=== PATIENT | female | born 1990 | race Caucasian/White ===

== ENCOUNTER 2016-11-22 21:32 | Inpatient (IN) | payer OTHER ==
[2016-11-22] MEDS ORDERED: AMPICILLIN SODIUM 2 GM in NS 100 ML IV ONE (22:06)
[2016-11-22] MEDS ORDERED: LR 1,000 ML IV PRN (22:06)
[2016-11-22] MEDS ORDERED: EPSOM SALT 454 GM TP PRN (22:06)
[2016-11-22] MEDS ORDERED: OXYTOCIN/RINGERS LACTATE 1,000 ML IV PRN (22:06)
[2016-11-22] MEDS ORDERED: LIDOCAINE 1% 30 ML SDV SC PRN (22:06)
[2016-11-22] MEDS ORDERED: OLIVE OIL 118 ML BTL MISC PRN (22:06)
[2016-11-22] MEDS ORDERED: TERBUTALINE SULFATE 1 MG/ML VIAL IV PRN (22:06)
[2016-11-22] MEDS ORDERED: OXYTOCIN/RINGERS LACTATE 500 ML IV SCH (22:30)
[2016-11-22 22:59] LABS: % IMMATURE GRANULYOCYTES 0.6 % (0.0-1.1); ABSOLUTE IMMATURE GRANULOCYTES 0.07 10^3/uL (0.00-0.10); ADD DIFF? NO; ADD MORPH? NO; ADD SCAN? NO; ATYPICAL LYMPHOCYTE FLAG 0 (0-99); FRAGMENT RBC FLAG 0 (0-99); HEMATOCRIT 36.7 % (38.0-47.0); HEMOGLOBIN 12.8 g/dL (12.6-16.3); LEFT SHIFT FLG 0 (0-99); LIPEMIA HEMOLYSIS FLAG 90 (0-99); MEAN CELL HEMOGLOBIN 31.4 pg (27.9-34.1); MEAN CELL HEMOGLOBIN CONCENTR. 34.9 g/dL (32.4-36.7); MEAN CELL VOLUME 90.2 fL (81.5-99.8); MEAN PLATELET VOLUME 9.5 fL (8.7-11.7); PLATELET CLUMPS FLAG 0 (0-99); PLATELET COUNT 223 10^3/uL (150-400); RED BLOOD CELL COUNT 4.07 10^6/uL (4.18-5.33); RED CELL DISTRIBUTION WIDTH 12.5 % (11.5-15.2)
[2016-11-22] MEDS ORDERED: OXYTOCIN 10 UNIT/ML VIAL ONE (23:02)
[2016-11-22] MEDS ORDERED: LIDOCAINE 1% 30 ML SDV ONE (23:02)
[2016-11-22] MEDS ORDERED: AMMONIA AROMATIC 1 EACH AMP IH ONE (23:02)
[2016-11-22] MEDS ORDERED: OLIVE OIL 118 ML BTL ONE (23:02)
[2016-11-22] MEDS ORDERED: TERBUTALINE SULFATE 1 MG/ML VIAL ONE (23:02)
--- NOTE | 2016-11-22 23:02 | GHP ---
[f rep st] PREOP HISTORY AND PHYSICAL DATE OF ADMISSION: 11/22/2016 ADMITTING DIAGNOSIS: 25-year-old, 2, para 1-0-0-1 at 39-3/7-weeks who presents complaining of contractions, in early labor. HISTORY OF PRESENT COMPLAINT: Patient complaining of contractions every 5-8 minutes since around 7:30 p.m. this evening and getting stronger. Denies leaking of fluid or vaginal bleeding. Positive movement. Estimated due date 11/26/2016, confirmed with 8wk U/S. The patient has received care with [facility] since 1st trimester. No complications with this . GBS positive. MEDICAL HISTORY: Asthma with infrequent albuterol use; Scoliosis; Anemia; and Depression/Anxiety - uses marijuana, used SSRIs in the past, currently no medications. SURGICAL HISTORY: Eyelid surgery. MEDICATIONS: vitamin, PRN Albuterol. ALLERGIES: Denies. 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 Needs Pap/colpo repeat . History of ovarian cysts. Denies history of STDs. FAMILY HISTORY: Noncontributory. SOCIAL HISTORY: Single. Father of baby involved. Marijuana use for anxiety and nausea during . Denies alcohol or tobacco use. OB HISTORY: 07/2011: , 6 pounds 4 ounce female, full-term, complicated by "problem with epidural wearing off" and depression x1 month. LABS: A-positive, antibody negative, GBS positive, HIV negative, hepatitis B negative, syphilis negative, rubella immune, GC/CT negative, one- hour GTT 93, Quad screen negative. PHYSICAL EXAMINATION: VITAL SIGNS: Stable. GENERAL APPEARANCE: Alert and oriented x3. CARDIOVASCULAR: Heart rate regular. LUNGS: Clear to auscultation bilaterally. ABDOMEN: Gravid, nontender. SVE: 4-5/70/-2, intact , bulging bag of water. position: Cephalic. heart tracing category II, heart tones 130 with moderate variability, positive accelerations, occasional variable decelerations to 90 bpm with spontaneous return to baseline. ASSESSMENT: A 25-year-old, 2, para 1-0-0-1 at 39-3/7-weeks who presents in early labor. PLAN: 1. Routine admit orders. 2. GBS prophylaxis per protocol. 3. Continuous Maternal- monitoring. 4. Pain management per patient request. 5. Discussed Pitocin augmentation if contractions not regular, patient agreeable. 6. Reviewed Pitocin risks. Patient verbalizes understanding. 7. Discussed plan of care with Dr. Vee, attending. /[id number]/MODL MTDEm
[2016-11-22] MEDS ORDERED: MISOPROSTOL 200 MCG TAB ONE (23:03)
--- NOTE | 2016-11-23 01:50 | OBPROG ---
OBG Progress Note Assessment/Plan: Assessment: 25y/o IUP @39w4d per L=8, active labor heart tracing Cat 2 Plan: Con't maternal/ monitoring Con't GBS prophylaxis per protocol Epidural for pain mgmt per pt req Disc POC with Dr. Vee, attending - amniotomy vs. pitocin augmentation s/p epidural placement if pt agreeable Anticipate 11/23/16 01:46 Subjective: Pt resting in bed, FOB at bedside. Pt c/o increased pain with CTXs, requests epidural at this time. Increased nausea with one episode vomiting. Objective: 11/22/16 22:40 Patient ABO/Rh A POSITIVE 11/22/16 22:40 - SVE Dilation (cm): 6 Effacement (%): 90 Station: -2 Current Contraction Pattern: Irregular (q 3 - 10 min) FHR (bpm): 120 (+accels, +occas variable decels with CTX to 90bpm with spont return to baseline) FHR Pattern Variability: Moderate FHR Category: 2 Membranes: Intact - Physical Exam General Appearance: alert, mild distress Abdomen: non-tender, soft Extremities: normal range of motion Skin: warm/dry Neuro/Psych: alert, normal mood/affect, oriented x 3 ICD10 Worksheet Patient Problems: Problems Problem Status Onset Active labor at term Acute - ICD10 Problem Qualifiers (1) Active labor at term
[2016-11-23] MEDS ORDERED: fentaNYL 100 MCG/2 ML INJ ONE (02:11)
[2016-11-23] MEDS ORDERED: BUPIVACAINE 0.25% 30 ML SDV ONE (02:12)
[2016-11-23] MEDS ORDERED: fentaNYL 2MCG/ML/BUP 0.1% RTU 100 ML BAG EP ONE (02:13)
[2016-11-23] MEDS: AMPICILLIN SODIUM 1 GM in NS 100 ML IV SCH ×5 (03:05→17:51)
[2016-11-23] MEDS: LR 500 ML IV SCH ×2 (04:34→06:44)
--- NOTE | 2016-11-23 04:34 | OBPROG ---
OBG Progress Note Assessment/Plan: Assessment: 25y/o IUP @39w4d per L=8, active labor heart tracing Cat 2 GBS+, rec'd 2 doses ABX prophylaxis Plan: Con't maternal/ monitoring Con't GBS prophylaxis per protocol Epidural in place Expectant mgmt s/p AROM Anticipate 11/23/16 01:46 11/23/16 04:31 11/23/16 04:32 Subjective: Pt napping, FOB at bedside. Pain well-controlled s/p epidural. Agreeable to trying AROM prior to pitocin to augment labor. Objective: 11/22/16 22:40 Patient ABO/Rh A POSITIVE 11/22/16 22:40 - SVE Dilation (cm): 6 Effacement (%): 100 Station: -2 Current Contraction Pattern: Irregular ( 4 - 10 min) FHR (bpm): 120 (+accels, +occas variable decels with spont return to baseline) FHR Pattern Variability: Moderate FHR Category: 2 Membranes: AROM (@0430) Amniotic Fluid Color: Clear - Physical Exam General Appearance: alert, no apparent distress Abdomen: non-tender, soft Skin: warm/dry Neuro/Psych: alert, normal mood/affect, oriented x 3 ICD10 Worksheet Patient Problems: Problems Problem Status Onset Active labor at term Acute - ICD10 Problem Qualifiers (1) Active labor at term
--- NOTE | 2016-11-23 06:41 | OBPROG ---
OBG Progress Note Assessment/Plan: Assessment: 25y/o IUP @39w4d per L=8, active labor heart tracing Cat 2 GBS+, rec'd 2 doses ABX prophylaxis Plan: Con't maternal/ monitoring Con't GBS prophylaxis per protocol Epidural in place Pitocin augmentation per protocol Rev risks of pitocin, pt verbalized understanding Disc POC with Dr. Vee, attending 11/23/16 06:39 Subjective: Pt resting comfortably in bed, family at bedside. Denies increase in pain/ pressure. Objective: 11/22/16 22:40 Patient ABO/Rh A POSITIVE 11/22/16 22:40 - SVE Dilation (cm): 6 Effacement (%): 100 Station: -2 Current Contraction Pattern: Irregular (q 4-7 min) FHR (bpm): 115 (+accels, occas variable decels with spont return to baseline) FHR Pattern Variability: Moderate FHR Category: 2 Membranes: SROM Amniotic Fluid Color: Clear - Physical Exam General Appearance: alert, no apparent distress Membranes: AROM Amniotic Fluid Color: clear Neuro/Psych: alert, normal mood/affect, oriented x 3 ICD10 Worksheet Patient Problems: Problems Problem Status Onset Active labor at term Acute - ICD10 Problem Qualifiers (1) Active labor at term
[2016-11-23] MEDS ORDERED: PHENYLEPHRINE HCL 100 MCG/ML SYR ONE (07:30)
[2016-11-23] MEDS ORDERED: HYDROCORTISONE 0.5% CREAM TP PRN (09:30)
[2016-11-23] MEDS ORDERED: HYDROCODONE/APAP 5/325 TAB PO PRN (09:30)
[2016-11-23] MEDS ORDERED: SIMETHICONE 80 MG TAB CHEW PO PRN (09:30)
--- NOTE | 2016-11-23 09:35 | OBPROC ---
- Labor and Delivery Onset of Contractions Date: 11/22/16 Onset of Contractions Time: 21:00 Onset of Contractions Type: Augmented Rupture of Membranes Date: 11/23/16 Rupture of Membranes Time: 04:30 Rupture of Membranes Type: Artificial Amniotic Fluid Color: Clear Dilation Complete Time: 07:00 Delivery Type: Spontaneous Placenta Delivery Date: 11/23/16 Placenta Delivery Time: 09:20 Episiotomy/Laceration: Periurethral (Right-hemostatic), Other (Specify) ( Perineum intact) Repair: Other (Specify) (none) EBL: 300 Complications: Nuchal Cord (x1; slipped over shoulder; cord around limb x 1) - Medications Labor Augmentation/Induction Meds Used: Pitocin Labor Augmentation/Induction Indication: Other (Specify) (No cervical change) Anesthesia: Epidural - Info Infant A Delivery Date: 11/23/16 Delivery Time: 09:15 Sex of : Female (Iris) Score (1 Min): 8 Score (5 Min): 9
[2016-11-23] MEDS: IBUPROFEN 600 MG TAB PO PRN ×3 (10:23→23:29)
[2016-11-23 20:11] VITALS: O2SAT 95
[2016-11-24] MEDS: IBUPROFEN 600 MG TAB PO PRN ×3 (05:05→17:50)
[2016-11-24] MEDS: DOCUSATE SODIUM 100 MG CAP PO PRN ×2 (07:52→21:54)
--- NOTE | 2016-11-24 10:15 | SOAPPROG ---
SOAP Progress Note Assessment/Plan: Assessment: well pain well managed vs wnl afebrile ff@u scant rubra lochia perineum well approximated voiding without difficulty Plan:pp day1 11/24/16 10:14 Subjective: Doing well denies difficulty. well. Voiding well. Objective: Vital Signs Temp Pulse Resp BP Pulse Ox 37.1 C 140 H 16 112/72 95 11/24/16 08:02 11/24/16 08:02 11/24/16 08:02 11/23/16 20:11 11/23/16 20:11 Laboratory Results 11/22/16 22:40 11/23/16 11/24/16 11/25/16 05:59 05:59 05:59 Output Total 250 Balance -250 - Time Spent With Patient Time Spent With Patient: 15 minutes - Pending Discharge Pending Discharge Within 24 Hours: Yes Pending Discharge Date: 11/25/16 Pending Discharge Time: 11:00 Physical Exam - Physical Exam General Appearance: WD/WN, alert, no apparent distress Abdomen: other (FF@u) Pelvic Exam: vaginal bleeding (Scant rubra lochia) Skin: normal color, warm/dry Extremities: normal range of motion, Macario's sign (negative bilaterally), other (dtrs wnl bilaterally 1+ no clonus) Neuro/Psych: no motor/sensory deficits, alert, normal mood/affect, oriented x 3 ICD10 Worksheet Patient Problems: Problems Problem Status Onset Active labor at term Acute (spontaneous vaginal delivery) Acute
[2016-11-25] MEDS: IBUPROFEN 600 MG TAB PO PRN ×2 (01:21→08:42)
[2016-11-25] MEDS: DOCUSATE SODIUM 100 MG CAP PO PRN (08:42)
--- NOTE | 2016-11-25 10:28 | SOAPPROG ---
SOAP Progress Note Assessment/Plan: Assessment: ppd# 2 s/p breast feeding hx anxiety and depression - mood stable Plan: routine post care and discharge instructions mood precautions 11/25/16 10:26 Objective: Vital Signs Temp Pulse Resp BP Pulse Ox 36.8 C 72 16 114/69 95 11/24/16 20:00 11/24/16 20:00 11/24/16 20:00 11/24/16 20:00 11/24/16 20:00 Laboratory Results 11/22/16 22:40 11/24/16 11/25/16 11/26/16 05:59 05:59 05:59 Output Total 250 Balance -250 Physical Exam - Physical Exam General Appearance: WD/WN, alert, no apparent distress Respiratory: chest non-tender, lungs clear, normal breath sounds Cardiac/Chest: normal peripheral pulses, regular rate, rhythm Abdomen: normal bowel sounds, non-tender, soft, other (fundus firm and non tender) Skin: normal color, warm/dry Extremities: normal range of motion, non-tender, normal inspection, normal capillary refill Neuro/Psych: no motor/sensory deficits, alert, normal mood/affect, oriented x 3 ICD10 Worksheet Patient Problems: Problems Problem Status Onset Active labor at term Acute (spontaneous vaginal delivery) Acute
[2016-11-25 12:24] VITALS: BP 107/72; PULSE 77; RESP 40; TEMP 98.1
== END 2016-11-25 12:00 | disposition home or self-care (01) | DRG 775 ==
LOC: OBSVTOIN 21:32 → FLD 21:32 → FOB 11-23 12:42
PROVIDERS: ADMIT Advanced Practice Midwife; ATTEND Advanced Practice Midwife
PROC: 10E0XZZ Delivery of Products of Conception, External Approach (ICD-10-PCS; principal; 2016-11-23)
DX: O69.82X0 Labor and delivery complicated by other cord entanglement, without compression, not applicable or unspecified (principal); O99.824 Streptococcus B carrier state complicating childbirth; Z3A.39 39 weeks gestation of pregnancy; Z37.0 Single live birth
CPT/HCPCS: J0290; J2370; J2590; J3010; J3105

== ENCOUNTER 2018-06-21 08:14 | Emergency (ER) | payer MEDICAID ==
[2018-06-21] MEDS ORDERED: predniSONE 20 MG TAB PO ONE (08:40)
[2018-06-21] MEDS ORDERED: FAMOTIDINE 40 MG in NS 100 ML IV ONE (08:41)
[2018-06-21] MEDS ORDERED: ACETAMINOPHEN 500 MG TAB PO ONE (08:41)
--- NOTE | 2018-06-21 08:46 | EDPHY ---
H & P Time Seen by Provider: 06/21/18 08:24 HPI/ROS: This patient presents with urticaria and severe itching. She attributes this to the minocycline antibiotic that she started a week ago for acne. She stops taking it yesterday due to the onset of the urticaria and reports that initially the hives were limited to her trunk but over the past 24 hr of spread to her face and legs in addition. The intense itching prevents sleep last night. She has taken Benadryl with minimal improvement-last dose 25 mg at 3:00 a.m.. She notes no other exacerbating factors. She reports an associated frontal headache similar to prior headaches achy in nature 7/10 intensity. She denies any other associated symptoms. She is accompanied by her fiancee who drove her here by private vehicle. ROS: Constitutional: No fevers or other complaints HEENT: No URI symptoms. She reports slight facial swelling around her eyes but no mouth swelling, difficulty swallowing or other complaints Pulmonary: No significant dyspnea or wheezing. Cardiovascular: No significant lightheadedness GI: Slight nausea this morning has since resolved. She tolerated breakfast without difficulty-discussing gravy 7 point review of symptoms is performed and otherwise negative with exception of pertinent positives and negatives listed in HPI and ROS Past Medical/Surgical History: Acne Intermittent headaches similar to today's that usually respond [id number] analgesics Smoking Status: Never smoked Physical Exam: General Appearance: Alert, no distress. Eyes: Pupils equal and round no pallor or injection. Optic fundi are normal bilaterally ENT, Mouth: Mucous membranes moist. No cranial tenderness. Respiratory: There are no retractions, lungs are clear to auscultation. Cardiovascular: Regular rate and rhythm. Gastrointestinal: Abdomen is soft and nontender, no masses, bowel sounds normal. Neurological: GCS 15. Cranial nerves 2-12 grossly intact no focal sensory motor deficits Skin: Diffuse urticaria covering trunk phase extremities-erythematous papules that idania easily with pressure. No petechia or purpura. No mucosal lesions on lips or intraoral lesions. Musculoskeletal: Neck is supple nontender. Extremities are symmetrical, full range of motion. Psychiatric: Mood and affect are normal DIFFERENTIAL DIAGNOSIS: After history and physical exam differential diagnosis was considered for drug allergy with urticaria. No clinical evidence of anaphylaxis. Tension headache, migraine headache, sinusitis Constitutional: Initial Vital Signs Temperature (C) 37.1 C 06/21/18 08:24 Heart Rate 105 H 06/21/18 08:24 Respiratory Rate 18 06/21/18 08:24 Blood Pressure 113/78 06/21/18 08:24 O2 Sat (%) 100 06/21/18 08:24 O2 Delivery Mode Room Air Allergies/Adverse Reactions: minocycline Allergy (Verified 06/21/18 08:22) Home Medications: Medication Instructions Recorded Bcp 06/21/18 Minocycline HCl 06/21/18 hydrOXYzine HCL [Hydroxyzine HCl] 50 - 100 mg PO QID PRN #80 tablet 06/21/18 predniSONE 60 mg PO DAILY #25 tablet 06/21/18 MDM/Departure - MDM ED Course/Re-evaluation: Tylenol p. O., prednisone and Pepcid p.o. In addition I counseled patient regarding drug allergy, urticaria tension headache. Discussion: Patient presents with significant urticaria attributable to minocycline drug allergy without evidence of anaphylaxis. Her headache is consistent with prior headaches and clinically consistent with a tension headache. No findings that would suggest intracranial bleed, RUBBER PROCESS HAND infection or other red flag findings. However the patient understands need to return emergency department should she develop worsening allergic symptoms, worsening headache, confusion or any other concerns. Plan to treat her with prednisone, hydroxyzine and Pepcid. - Depart Disposition: Home, Routine, Self-Care Clinical Impression: Allergic urticaria, Drug allergy Condition: Good Instructions: Urticaria (ED), Tension Headache (ED), Antibiotic Medication Allergy (ED) Additional Instructions: Diagnosis: Drug allergy with urticaria 2. Tension headache Plan: Drink plenty fluids Tylenol for headache as needed Prednisone anti-inflammatory as prescribed Hydroxyzine antihistamine for itching Pepcid 40 mg a day until urticaria resolves Return for any significant worsening despite the treatment plan List tetracyclines medications as an allergy in the future and avoid this class of medications. Prescriptions: hydrOXYzine HCL [Hydroxyzine HCl] 50 - 100 mg PO QID PRN #80 tablet PRN Reason: Itching predniSONE 60 mg PO DAILY #25 tablet Referrals: Christopher Page DO [Doctor of Osteopathy] - As per Instructions
[2018-06-21] MEDS ORDERED: FAMOTIDINE 20 MG TAB PO ONE (08:49)
[2018-06-21 09:06] VITALS: BP 107/71
== END 2018-06-21 09:05 | disposition home or self-care (01) ==
LOC: CED 08:14
DX: L50.0 Allergic urticaria (principal); L70.9 Acne, unspecified; Z79.2 Long term (current) use of antibiotics
CPT/HCPCS: J7512

== ENCOUNTER 2018-08-30 02:28 | Emergency (ER) | payer MEDICAID ==
[2018-08-30] MEDS ORDERED: ONDANSETRON 4 MG/2 ML VIAL ONE (02:43)
--- NOTE | 2018-08-30 02:44 | EDPHY ---
H & P Stated Complaint: c/o N/V RT flank pain since 1700 Time Seen by Provider: 08/30/18 02:32 HPI/ROS: 27 yo F presents c/o nausea ,vomiting and diarrhea, with abdominal pain that began about 6 hours ago. No prior abdominal surgery. She also complains of lower back pain that she describes as achy. Review of systems As per HPI General no fever no chills no weakness HEENT no eye pain no eye discharge. No eye redness, no sore throat Respiratory no cough, no shortness of breath Cardiac no chest pain, no peripheral edema GI positive abdominal pain positive nausea positive vomiting positive diarrhea no flank pain, no hematuria, no dysuria Musculoskeletal no myalgias, no joint pain Heme no easy bruising, no easy bleeding Endo no polyuria, no polydipsia Skin no rashes, no pruritus Neuro no syncope, no dizziness, no headaches Psych is no suicidal ideation, no homicidal ideation Source: Patient, Family Exam Limitations: No limitations - Personal History LMP (Females 10-55): Now Current Tetanus Diphtheria and Acellular Pertussis (TDAP): Yes - Medical/Surgical History Hx Asthma: Yes Hx Chronic Respiratory Disease: No Hx Diabetes: No Hx Cardiac Disease: No Hx Renal Disease: No Hx Cirrhosis: No Hx Alcoholism: No Hx HIV/AIDS: No Hx Splenectomy or Spleen Trauma: No Other PMH: Bilateral eyelid surgery- 16yo; asthma; scoliosis; anxiety/ depression hx - Family History Significant Family History: No pertinent family hx - Social History Smoking Status: Never smoked Alcohol Use: Occasionally Drug Use: Marijuana - Physical Exam Exam: 27-year-old female, dry heaves, alert and oriented, moderate distress, afebrile Atraumatic normocephalic OP-dry mucosa Extraocular muscles intact, anicteric Neck no JVD, supple, no meningismus Lungs clear to auscultation bilaterally Heart regular rate and rhythm without murmur rub or gallop Abdomen scaphoid, bowel sounds quiet, soft, periumbilical tenderness no guarding no rebound Back-no CVA tenderness, mild paralumbar tenderness bilaterally Extremities no cyanosis clubbing or edema Constitutional: Initial Vital Signs Temperature (C) 36.6 C 08/30/18 02:35 Heart Rate 57 L 08/30/18 02:35 Respiratory Rate 18 08/30/18 02:35 Blood Pressure 124/67 H 08/30/18 02:35 O2 Sat (%) 97 08/30/18 02:35 O2 Delivery Mode Room Air Allergies/Adverse Reactions: Tetracyclines Allergy (Severe, Verified 06/21/18 09:02) hives and rash minocycline Allergy (Verified 06/21/18 08:22) Home Medications: Medication Instructions Recorded Bcp 06/21/18 Medical Decision Making - Diagnostics Imaging Results: Imaging Impressions Abdomen CT 08/30/18 03:29 Impression: 1. No CT findings for appendicitis. 2. Prominent periportal edema in the liver which is nonspecific. There is also some mild peripheral heterogeneous enhancement of the liver. Considerations could be hepatitis or cholangitis or overhydration. Results called and discussed with Hailee Haro MD on 08/30/2018 at 0421 hours. Final interpretation concurs with initial preliminary labor relations director radiologist impression. ED Course/Re-evaluation: pt seen and evaluated for nausea, vomiting, diarrhea and abd pain iv established and normal saline started pt given ondansetron 4 mg ivp for nausea given morphine 4 mg ivp for abdominal cramping cbc wnl lactate 1.2 urine dip neg for sp grav 1030, ketones pos creatinine normal ct abd and pelvis- Imp gastroenteritis cannot rule out hyperemesis secondary to cannabinoids Plan dc home ondansetron home pack f/u pcp as needed return to ED if worsening Differential Diagnosis: Differential diagnosis considered but not limited to: Appendicitis, cholecystitis, pancreatitis, gastroenteritis, enteritis, cyclic vomiting - Data Points Medications Given: Discontinued Medications Diphenhydramine HCl (Benadryl Injection) 25 mg IVP EDNOW ONE Stop: 08/30/18 04:10 Last Admin: 08/30/18 04:15 Dose: 25 mg Sodium Chloride (Ns) 1,000 mls @ 0 mls/hr IV ONCE ONE PRN Reason: Wide Open Stop: 08/30/18 02:46 Last Admin: 08/30/18 02:51 Dose: 1,000 mls Sodium Chloride (Ns) 1,000 mls @ 0 mls/hr IV ONCE ONE PRN Reason: Wide Open Stop: 08/30/18 03:13 Last Admin: 08/30/18 04:04 Dose: 1,000 mls Metoclopramide HCl (Reglan Injection) 10 mg IVP EDNOW ONE Stop: 08/30/18 04:10 Last Admin: 08/30/18 04:15 Dose: 10 mg Morphine Sulfate (Morphine) 4 mg IVP EDNOW ONE Stop: 08/30/18 02:46 Last Admin: 08/30/18 03:03 Dose: 4 mg Ondansetron HCl (Zofran) 4 mg IVP EDNOW ONE Stop: 08/30/18 02:46 Last Admin: 08/30/18 02:52 Dose: 4 mg Ondansetron HCl (Zofran Odt 4 Mg Prepack#2) 1 btl TAKEHOME EDNOW ONE Stop: 08/30/18 04:29 Last Admin: 08/30/18 04:45 Dose: 1 btl Point of Care Test Results: CBC CBC Collection Date 08/30/18 CBC Collection Time 03:00 WBC 7.2 RBC 4.33 HGB 13.3 HCT 38.7 PLT 291 Neut # 5.6 Neut 78.5 LYMPH # 1.2 LYMPH 16.5 Other WBC # 0.4 Other WBC 5.0 MCV 89.4 Chemistry 08/30/18 02:53 POC Sodium 139 mEq/L mEq/L (135-145) POC Potassium 4.1 mEq/L mEq/L (3.3-5.0) POC Chloride 104.0 mEq/L mEq/L (97-110) POC Total CO2 24 mEq/L mEq/L (22-31) POC BUN 9 mg/dL mg/dL (7-23) POC Creatinine 0.8 mg/dL mg/dL (0.6-1.0) POC Glucose 124 mg/dL H mg/dL (70-100) POC Calcium 8.8 mg/dL mg/dL (8.5-10.4) POC Total Bilirubin 0.8 mg/dL mg/dL (0.1-1.4) POC AST 33 IU/L IU/L (14-46) POC ALT 26 IU/L IU/L (9-52) POC Alk Phosphatase 33 IU/L L IU/L (38-126) POC Total Protein 6.7 g/dL g/dL (6.3-8.2) POC Albumin 4.2 g/dL g/dL (3.5-5.0) Blood Gas/Lactic Acid-Venous 08/30/18 02:59 POC Lactic Acid Wilman 1.2 mmol/L mmol/L (0.7-2.1) Urine Collection Date 08/30/18 Collection Time 03:28 HCG Results Negative Urine Dip Collection Date 08/30/18 Collection Time 02:40 Specific [place] (1.002-1.030) 1.030 PH (5.0-7.5) 6.0 Leukocytes (Negative) Negative Nitrites (Negative) Negative Protein (Negative) Trace Glucose (Negative) Negative Ketones (Negative) 2+ Urobilnogen (0.2-1.0 EU) 0.2 Bilirubin (Negative) Negative Blood (Negative) Negative Departure - Departure Disposition: Home, Routine, Self-Care Clinical Impression: Gastroenteritis Condition: Good Instructions: Gastroenteritis (ED) Referrals: Patient,NotPresent [Primary Care Provider] - As per Instructions [facility] [Provider Group] - As per Instructions
[2018-08-30] MEDS ORDERED: ONDANSETRON 4 MG/2 ML VIAL IVP ONE (02:45)
[2018-08-30] MEDS ORDERED: NS 1,000 ML IV ONE ×2 (02:45→03:12)
[2018-08-30] MEDS ORDERED: METOCLOPRAMIDE 10 MG/2 ML VIAL IVP ONE (04:09)
[2018-08-30] MEDS ORDERED: ONDANSETRON 4MG PREPACK#2 BTL TAKEHOME ONE (04:28)
[2018-08-30 04:47] VITALS: BP 122/62
== END 2018-08-30 04:46 | disposition home or self-care (01) ==
LOC: CED 02:28
DX: K52.9 Noninfective gastroenteritis and colitis, unspecified (principal); E86.9 Volume depletion, unspecified
CPT/HCPCS: 74177-PO; 80053-ER; 83605-ER; 96361-ER; 96374-ER; 96375-ER; J1200; J2270; J2405; J2765